=== PATIENT | male | born 1995 | race Caucasian/White ===

== ENCOUNTER 2018-05-10 13:07 | Emergency (ER) | payer BC, MEDICAID ==
[2018-05-10 13:53] LABS: Urine Appearance Clear; Urine Blood Negative (Negative); Urine Color Yellow; Urine Ketones Negative (Negative); Urine Protein Negative (Negative); Urine Specific Gravity 1.008 (1.010-1.030); Urine Urobilinogen Negative (Negative)
[2018-05-10 15:21] VITALS: BP 164/90
--- NOTE | 2018-05-10 17:07 | ED ---
GI/ HPI - HPI Summary HPI Summary: Patient is a 23-year-old otherwise healthy male presenting to the ED with right- sided testicular tenderness which was acute onset yesterday control and recovery special tactics after awakening. He states the pain was intermittent throughout the day, worsening with standing, better with sitting. Denies history or chance of STDs. Denies any erythema to the area. Denies any history of epididymitis, orchitis, undescended testicle. He denies any fevers, sweats, chills. - History of Current Complaint Chief Complaint: EDUrogenitalProblems Time Seen by Provider: 05/10/18 13:14 Stated Complaint: TESTICULAR PAIN Hx Obtained From: Patient Onset/Duration: Started Days Ago Timing: Constant Severity: Moderate Pain Intensity: 4 Additional Locations for Males: Scrotum Pain Characteristics: Aching, Burning Associated Signs and Symptoms: Positive: Negative Aggravating Factor(s): Nothing Alleviating Factor(s): Nothing - Risk Factors GI Bleed Risk Factor(s): Negative Testicular Torsion Risk Factor(s): Negative - Allergy/Home Medications Allergies/Adverse Reactions: Allergies Allergy/AdvReac Type Severity Reaction Status Date / Time No Known Allergies Allergy Verified 05/10/18 13:12 PMH/Surg Hx/FS Hx/Imm Hx Previously Healthy: Yes Infectious Disease History: No Infectious Disease History: Denies: Traveled Outside the [place] in Last 30 Days - Social History Occupation: Unemployed Lives: Dormitory/Roommates Alcohol Use: Occasionally Hx Substance Use: No Substance Use Type: Reports: None Smoking Status (MU): Never Smoked Tobacco Review of Systems Constitutional: Negative Negative: Fever, Chills, Fatigue, Skin Diaphoresis Negative: Palpitations, Chest Pain Negative: Shortness Of Breath, Cough Positive: other - right testicular pain. Negative: burning, dysuria, discharge Musculoskeletal: Negative Skin: Negative Neurological: Negative All Other Systems Reviewed And Are Negative: Yes Physical Exam Triage Information Reviewed: Yes Vital Signs On Initial Exam: Initial Vitals Temp Pulse Resp BP Pulse Ox 98.6 F 106 18 153/77 100 05/10/18 13:08 05/10/18 13:08 05/10/18 13:08 05/10/18 13:08 05/10/18 13:08 Vital Signs Reviewed: Yes Appearance: Positive: Well-Nourished Skin: Positive: Skin Color Reflects Adequate Perfusion Head/Face: Positive: Normal Head/Face Inspection Eyes: Positive: EOMI, NIDHI, Conjunctiva Clear Neck: Positive: No Lymphadenopathy Respiratory/Lung Sounds: Positive: Clear to Auscultation, Breath Sounds Present Cardiovascular: Positive: RRR, Pulses are Symmetrical in both Upper and Lower Extremities Male Genital Exam: Positive: Normal Genitalia, No Hernia, Epididymal Tenderness , Scrotum Tenderness (R), Testicular Tenderness (R). Negative: Hernia Mass, Inguinal Tenderness, Scrotum Tenderness (L), Testicular Tenderness (L), Urethral Discharge Musculoskeletal: Positive: Strength/ROM Intact Neurological: Positive: Speech Normal Psychiatric: Positive: Normal, Affect/Mood Appropriate AVPU Assessment: Alert Diagnostics - Vital Signs Vital Signs Temp Pulse Resp BP Pulse Ox 05/10/18 15:19 100.4 F 108 18 164/90 99 05/10/18 15:00 95 98 05/10/18 14:48 100 164/100 99 05/10/18 14:19 102 99 05/10/18 14:17 103 127/73 99 05/10/18 13:08 98.6 F 106 18 153/77 100 - Laboratory Lab Results: Lab Results 05/10/18 Range/Units 13:47 Urine Color Yellow Urine Appearance Clear Urine pH 6.0 (5-9) Ur Specific [place] 1.008 L (1.010-1.030) Urine Protein Negative (Negative) Urine Ketones Negative (Negative) Urine Blood Negative (Negative) Urine Nitrate Negative (Negative) Urine Bilirubin Negative (Negative) Urine Urobilinogen Negative (Negative) Ur Leukocyte Esterase Negative (Negative) Urine Glucose Negative (Negative) Urine Ascorbic Acid * A (Negative) Lab Statement: Any lab studies that have been ordered have been reviewed, and results considered in the medical decision making process. GIGU Course/Dx - Course Course Of Treatment: Patient presents with right testicular pain x 2 days which radiates to the groin on the ipsilateral side. On physical exam the epidydimus and spermatic cord are with tenderness, and without palpable masses. Positive bilateral cremaster reflex. No abnormal elevation of the L testicle or shortening of the spermatic cord. No scrotal erythema bilaterally. Positive Prehn's sign. No evidence of hydrocele or varicocele on examination. No drainage or discharge from the penis. Afebrile. US obtained which shows: Hypervascularity of the right testes with enlargement of the right epididymis consistent with right-sided epididymal orchitis. No intratesticular masses are noted. US negative. Patient is prescribed Levaquin 500mg x 10 days as he is very low risk for STDs (per patient, same sexual partner x several years). He understands to go to the ED immediately if worsening pain or discoloration develops. - Diagnoses Provider Diagnoses: Acute epididymitis Discharge - Sign-Out/Discharge Documenting (check all that apply): Patient Departure - Discharge Plan Condition: Stable Disposition: HOME Prescriptions: Levofloxacin TAB* [Levaquin TAB*] 500 mg PO DAILY #10 tab Patient Education Materials: Epididymo-Orchitis (ED) Referrals: No Primary Care Phys,NOPCP [Primary Care Provider] - Additional Instructions: Ice may help Elevation - Billing Disposition and Condition Condition: STABLE Disposition: Home
== END 2018-05-10 15:19 | disposition home or self-care (01) ==
LOC: ED 13:07
DX: N45.1 Epididymitis (principal)
CPT/HCPCS: 76870; 81003; 99283